=== PATIENT | female | born 1950 | race Caucasian/White ===

== ENCOUNTER 2018-12-26 14:38 | Emergency (ER) | payer OTHER, SELFPAY ==
[2018-12-26] VITALS (8 sets, daily range): BP systolic 150–212; BP diastolic 58–90; PULSE 72–84; RESP 16–19; TEMP 37.2; O2SAT 95–100
--- NOTE | 2018-12-26 15:02 | DI.CT.S_ITS ---
PROCEDURE: CT HEAD/BRAIN WO CON INDICATIONS: (ED WR) fell 2 weeks ago, now w/ L side pain and vision gallo TECHNIQUE: Noncontrast 4.5 mm thick angled axial sections acquired from the foramen magnum to the vertex, with coronal and sagittal reformats. For radiation dose reduction, the following was used: automated exposure control, adjustment of mA and/or kV according to patient size. COMPARISON: None. FINDINGS: Image quality: Excellent. CSF spaces: Basal cisterns are patent. No extra-axial fluid collections. The ventricles are symmetric in size and shape. Brain: No intracranial bleeds or masses. There is cerebral volume loss for age, with resultant ventricular and sulcal prominence. There are periventricular and deep white matter chronic small vessel ischemic changes. There is intracranial internal carotid artery and vertebral artery atherosclerosis. Skull and face: Calvarium and visualized facial bones appear intact, without suspicious lesions. Sinuses: Visualized sinuses and mastoids are clear. IMPRESSION: No acute intracranial disease process. Dictated by: Maida Hogan MD, PhD on 12/26/2018 at 15:15 Approved by: Maida Hogan MD, PhD on 12/26/2018 at 15:18
--- NOTE | 2018-12-26 18:04 | PC.NURSE ---
FAST exam is negative. Patient does c/o left sided fuzzy vision ongoing for 3 days. No balance issues, ambulated to bathroom without issue. Strength is full and equal. Denies headache, but states there is a fullness feeling on left side of head starting at the occipital. Does have a history of migraines, but this feels different than migraines.
--- NOTE | 2018-12-26 18:23 | ED_ITS ---
HPI - Head Injury General Chief complaint: Head Injury Stated complaint: fall and hit head sent by walk in Time Seen by Provider: 12/26/18 17:57 Source: patient Mode of arrival: ambulatory Limitations: no limitations History of Present Illness HPI Narrative: The patient presents complaining of left eye blurred vision for 3 days. She has no pain or visual describes in the left eye. She fell on concrete at home approximately 3 weeks ago she tripped, falling back and striking the occipital scalp. There is no syncope or palpitations. She had no LOC from injury. She is not having head pain. the issue with her left eye and heard much later. She has no confusion. She denies speech changes. She has no focal numbness or weakness. she is diabetic. She has no history of CVA. She is not on blood thinners. She is alert, and ambulatory with no deficits of the left eye concerns. She has elevated blood pressure, systolic 211, upon triage. She has no associated headache, chest pain or dyspnea. She has the left lower vision. Her eyes are corrected. There is no visual deficit. Related Data Home Medications Medication Instructions Recorded Confirmed No Known Home Medications 12/26/18 12/26/18 Allergies Allergy/AdvReac Type Severity Reaction Status Date / Time hydrocodone [From VICODIN] Allergy Severe Rash Unverified 12/26/18 15:00 Penicillins [PENICILLINS] Allergy Severe Rash Unverified 12/26/18 15:00 epinephrine [EPINEPHRINE] AdvReac Unknown Anxiety Unverified 12/26/18 15:00 Review of Systems Review of Systems ROS Unobtainable: All systems reviewed & are unremarkable except as noted in HPI and below Constitutional Reports system reviewed and no additional complaints, except as docu and Denies frequent falls Eyes Comments: Left blurred vision. ENT Ears, Nose, Mouth, and Throat: Denies change in voice, Denies dizziness, Denies neck pain and Denies sore throat Cardiovascular Denies chest pain, Denies irregular heart rhythm, Denies lightheadedness, Denies palpitations, Denies dyspnea and Denies dyspnea on exertion Respiratory Denies cough, Denies dyspnea, Denies dyspnea on exertion and Denies wheezing Gastrointestinal Gastrointestinal: Denies abdominal pain, Denies nausea and Denies vomiting Musculoskeletal Denies back pain, Denies neck pain and Denies numbness Comments: No lower extremity edema Integumentary/Breasts Denies rash Neurologic Denies confusion, Denies dizziness, Denies frequent falls and Denies numbness Psychiatric Reports anxiety and Denies confusion Endocrine Denies palpitations Allergic/Immunologic Denies wheezing [facility] Medical History (Updated 12/26/18 @ 21:32 by Marco A Alejandra MD) Diabetes mellitus type 2, diet-controlled (Acute) Surgical History (Updated 12/26/18 @ 21:25 by Marco A Alejandra MD) No pertinent past surgical history (Acute) Social History Smoking Status: Never smoker Social History Smoking Status: Never smoker Exam Initial Vital Signs Initial Vital Signs: Vital Signs Temperature 98.9 F 12/26/18 14:54 Pulse Rate 84 12/26/18 14:54 Respiratory Rate 18 12/26/18 14:54 Blood Pressure 210/90 H 12/26/18 14:54 Pulse Oximetry 100 12/26/18 14:54 Const General: cooperative, well developed and anxious Nutritional Appearance: well nourished Orientation: alert, awake and oriented x3 HENMT Head: normocephalic and atraumatic Nose: external nose normal Face and sinus: face symmetric Mouth: oral mucosae normal Teeth and gingiva: dentition normal Throat: tonsils normal Eyes General: appearance normal, both eyes and all related structures Eyelids: eyelids normal Conjunctivae: conjunctivae normal Sclera: sclerae normal Pupils: PERRL EOM: EOM intact bilaterally Neck Neck: supple, No lymphadenopathy, No tender and No JVD Resp Effort & Inspection: normal respiratory effort and able to speak in complete sentences Auscultation: clear to auscultation bilaterally, no rales, no rhonchi and no wheezes Cardio Rate: regular rate Rhythm: regular rhythm Heart Sounds: no click, no gallops, no murmurs and no rubs Pulses: normal peripheral pulses GI Inspection: non-distended Palpation: soft, no hepatosplenomegaly, No guarding, No pulsatile mass and No tender Auscultation: normal bowel sounds Skin General: no rashes or lesions noted, No jaundice and No petechiae Neuro General: alert, oriented x3, gait normal and no focal motor deficits Speech: speech normal Extrem General: full ROM, no clubbing, cyanosis or edema, no pedal edema and no calf tenderness Course Course Narrative: Visual acuity is noted in nursing notes. she is 20/200 OU. She has no obvious ocular deficits. She has subjective blurred vision. Neurologic exam is normal. her initial blood pressure was 211 systolic. Her blood pressure improved to 150 systolic without intervention. She is otherwise asymptomatic. Orders Ordered: ED Orders 12/26/18 15:02 CT head/brain wo con Stat 12/26/18 17:55 Urine Culture Stat Urine Microscopic Stat 12/26/18 18:41 EKG-12 Lead Stat 12/26/18 19:05 Basic Metabolic Panel Stat Complete Blood Count AUTO DIFF Stat Troponin & CK Cardiac Panel Stat Vital Signs - 8 hr 12/26/18 14:54 12/26/18 16:51 12/26/18 18:00 Temperature 98.9 F Pulse Rate 84 83 79 Respiratory Rate 18 16 18 Blood Pressure 210/90 H Blood Pressure [Right Arm] 212/78 H 211/79 H Pulse Oximetry 100 97 95 12/26/18 18:38 12/26/18 19:30 12/26/18 20:00 Temperature Pulse Rate 79 79 76 Respiratory Rate 16 19 19 Blood Pressure Blood Pressure [Right Arm] 209/73 H 200/71 H 212/58 H Pulse Oximetry 98 99 98 12/26/18 20:30 12/26/18 21:02 Temperature Pulse Rate 75 72 Respiratory Rate 19 18 Blood Pressure Blood Pressure [Right Arm] 185/71 H 150/69 H Pulse Oximetry 97 97 MDM - Head Injury Lab Data Result diagrams: 12/26/18 19:05 12/26/18 19:05 Lab Results 12/26/18 12/26/18 12/26/18 Range/Units 17:55 19:05 19:05 WBC 7.2 (4.5-11.0) X10^3/uL RBC 4.37 (4.0-5.2) X10^6/uL Hgb 12.8 (12.0-16.0) g/dL Hct 37.6 (36-46) % MCV 86.2 (80-100) fL MCH 29.2 (26-34) PG MCHC 33.9 (30-36) % RDW 13.0 (11.6-14.8) % Plt Count 180 (150-400) X10^3/uL Neut % (Auto) 59.8 (50-75) % Lymph % (Auto) 29.5 (25-40) % [place] % (Auto) 8.8 (3-14) % Eos % (Auto) 1.6 L (2-4) % Baso % (Auto) 0.3 (0-2) % Neut # (Auto) 4300 (0562-3347) /uL Lymph # (Auto) 2100 (0901-1094) /uL [place] # (Auto) 600 (0-900) /uL Eos # (Auto) 100 (0-450) /uL Baso # (Auto) 0 (0-100) /uL Sodium 130 L (137-145) mmol/L Potassium 4.3 (3.4-5.1) mmol/L Chloride 93 L (98-107) mmol/L Carbon Dioxide 27 (22-32) mmol/L BUN 24 H (7-17) mg/dL Creatinine 0.60 (0.52-1.04) mg/dL Estimated GFR > 60.0 (>60) mL/min BUN/Creatinine Ratio 40.0 H (6-22) Glucose 192 H (80-110) mg/dL Calcium 9.4 (8.4-10.2) mg/dL Total Creatine Kinase (30-135) U/L CK-MB (CK-2) CK-MB (CK-2) Rel Index Troponin I (0.01-0.034) ng/mL Urine RBC 0-1/hpf (0-5/HPF) Urine WBC 1-5/hpf (0-5/HPF) Ur Squamous Epith Cells 0-1 /hpf (0-5/HPF) Urine Bacteria Many (>30) H (None) Ur Culture Indicated? Specimen cultured 12/26/18 Range/Units 19:05 WBC (4.5-11.0) X10^3/uL RBC (4.0-5.2) X10^6/uL Hgb (12.0-16.0) g/dL Hct (36-46) % MCV (80-100) fL MCH (26-34) PG MCHC (30-36) % RDW (11.6-14.8) % Plt Count (150-400) X10^3/uL Neut % (Auto) (50-75) % Lymph % (Auto) (25-40) % [place] % (Auto) (3-14) % Eos % (Auto) (2-4) % Baso % (Auto) (0-2) % Neut # (Auto) (5778-1911) /uL Lymph # (Auto) (9426-0869) /uL [place] # (Auto) (0-900) /uL Eos # (Auto) (0-450) /uL Baso # (Auto) (0-100) /uL Sodium (137-145) mmol/L Potassium (3.4-5.1) mmol/L Chloride (98-107) mmol/L Carbon Dioxide (22-32) mmol/L BUN (7-17) mg/dL Creatinine (0.52-1.04) mg/dL Estimated GFR (>60) mL/min BUN/Creatinine Ratio (6-22) Glucose (80-110) mg/dL Calcium (8.4-10.2) mg/dL Total Creatine Kinase 41 (30-135) U/L CK-MB (CK-2) TNP CK-MB (CK-2) Rel Index TNP Troponin I < 0.012 (0.01-0.034) ng/mL Urine RBC (0-5/HPF) Urine WBC (0-5/HPF) Ur Squamous Epith Cells (0-5/HPF) Urine Bacteria (None) Ur Culture Indicated? Urine Dip Bedside Urine Glucose 500 mg/dl Bedside Urine Bilirubin - Negative Bedside Urine Ketone - Negative Urine Specific [place] 1.015 Bedside Urine Occult Blood +/- Bedside Urine pH 7.5 Bedside Urine Protein + 30 Bedside Urine Urobilinogen - Negative Bedside Urine Nitrite - Negative Bedside Urine Leukocytes + [address] scan - head: Radiologist's impression: [address] [address] [address] Scan Report Signed Patient: Analy Kong AMR#: [id number] : [id number]:[id number] Age/Sex: 68 / FDate of Service: 12/26/18 Loc: ED Accession Number: [id number] Procedure: CT head/brain wo con Ordering Provider: Kerline OrourkeP- PROCEDURE: CT HEAD/BRAIN WO CON INDICATIONS: (ED WR) fell 2 weeks ago, now w/ L side pain and vision gallo TECHNIQUE: Noncontrast 4.5 mm thick angled axial sections acquired from the foramen magnum to the vertex, with coronal and sagittal reformats. For radiation dose reduction, the following was used: automated exposure control, adjustment of mA and/or kV according to patient size. COMPARISON: None. FINDINGS: Image quality: Excellent. CSF spaces: Basal cisterns are patent. No extra-axial fluid collections. The ventricles are symmetric in size and shape. Brain: No intracranial bleeds or masses. There is cerebral volume loss for age, with resultant ventricular and sulcal prominence. There are periventricular and deep white matter chronic small vessel ischemic changes. There is intracranial internal carotid artery and vertebral artery atherosclerosis. Skull and face: Calvarium and visualized facial bones appear intact, without suspicious lesions. Sinuses: Visualized sinuses and mastoids are clear. IMPRESSION: No acute intracranial disease process. Dictated by: Maida Hogan MD, PhD on 12/26/2018 at 15:15 Approved by: Maida Hogan MD, PhD on 12/26/2018 at 15:18 ECG Data Attestation: I personally reviewed and interpreted this ECG as follows: (Normal sinus rhythm at 79 beats per minute. left axis deviation, incomplete RBBB. Minimal voltage criteria for LVH. Q-waves in V5 and V6. No acute ST elevation.) Discharge Plan Departure Patient Disposition: Home Clinical Impression: Blurred vision, left eye, Elevated blood pressure reading Instructions: Essential Hypertension Activity Restrictions/Additional Instructions: Follow up with her doctor for ongoing blood pressure monitoring. 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 Return to the ER as needed. Prescriptions: No Action No Known Home Medications RF: 0
[2018-12-26 19:11] LABS: Add Manual Diff / Slide Review NO; Basophils Absolute Auto 0 /uL (0-100); Basophils Percent Auto 0.3 % (0-2); Eosinophils Absolute Auto 100 /uL (0-450); Eosinophils Percent Auto 1.6 % (2-4); Hematocrit 37.6 % (36-46); Hemoglobin 12.8 g/dL (12.0-16.0); Lymphocytes Absolute Auto 2100 /uL (1100-4500); Lymphocytes Percent Auto 29.5 % (25-40); Mean Corpuscular HGB Conc 33.9 % (30-36); Mean Corpuscular Hemoglobin 29.2 PG (26-34); Mean Corpuscular Volume 86.2 fL (80-100); Monocytes Absolute Auto 600 /uL (0-900); Monocytes Percent Auto 8.8 % (3-14); Neutrophils Absolute Auto 4300 /uL (1500-7000); Neutrophils Percent Auto 59.8 % (50-75); Platelet Count 180 X10^3/uL (150-400); Red Blood Cell Count 4.37 X10^6/uL (4.0-5.2); White Blood Cell Count 7.2 X10^3/uL (4.5-11.0)
[2018-12-26 19:24] LABS: Blood Urea Nitrogen 24 mg/dL (7-17); Calcium 9.4 mg/dL (8.4-10.2); Carbon Dioxide 27 mmol/L (22-32); Chloride 93 mmol/L (98-107); Creatine Kinase 41 U/L (30-135); Estimated Glomerular Filt Rate > 60.0 mL/min (>60); Glucose 192 mg/dL (80-110); HEMOLYSIS < 15 (0-50); Potassium 4.3 mmol/L (3.4-5.1); Sodium 130 mmol/L (137-145)
[2018-12-26 19:36] LABS: Troponin I < 0.012 ng/mL (0.01-0.034)
[2018-12-26 20:56] LABS: Bacteria Urine Many (>30); Culture Indicated Urine Specimen Cultured; RBC Urine 0-1/HPF (0-5/HPF); Squamous Epithelial Cell Urine 0-1 /HPF (0-5/HPF); WBC Urine 1-5/HPF (0-5/HPF)
--- NOTE | 2018-12-26 21:11 | PC.NURSE ---
On left Arm
== END 2018-12-26 21:54 | disposition home or self-care (01) ==
PROVIDERS: Emergency Provider Emergency Medicine
DX: H53.8 Other visual disturbances (principal); S09.90XA Unspecified injury of head, initial encounter; R03.0 Elevated blood-pressure reading, without diagnosis of hypertension; W19.XXXA Unspecified fall, initial encounter
CPT/HCPCS: 36591; 70450; 80048; 81003; 81015; 82550; 84484; 85025; 87077; 87086; 87147; 93005; 93010; 99284; 99285

== ENCOUNTER → 2019-09-03 13:46 | Outpatient (CLI) | payer OTHER, SELFPAY ==
--- NOTE | 2019-09-03 13:47 | DI.RAD.S_ITS ---
PROCEDURE: XR HAND RT MIN 3V INDICATIONS: right hand pain after fall TECHNIQUE: 3 views of the hand(s) acquired. COMPARISON: None. FINDINGS: Bones: No fractures or dislocations. Carpal bones are normally aligned. No suspicious bony lesions. Soft tissues: No suspicious soft tissue calcifications. IMPRESSION: No acute radiographic findings. If pain persists, followup imaging in 5-7 days is recommended to exclude occult fracture. Dictated by: Layne Martinez M.D. on 09/03/2019 at 13:11 Approved by: Layne Martinez M.D. on 09/03/2019 at 13:12
== END ==
PROVIDERS: PCP Physician Assistant Medical; Visit Provider Nurse Practitioner
DX: M79.641 Pain in right hand (principal)
CPT/HCPCS: 73130